=== PATIENT | female | born 1995 | race Caucasian/White ===

== ENCOUNTER → 2021-05-22 16:38 | Outpatient (CLI) | payer OTHER, MEDICAID, SELFPAY ==
[2021-05-22 20:57] LABS: Urine Chlamydia NOT DETECTED; Urine N gonorrhoeae NOT DETECTED
== END ==
PROVIDERS: Family Provider Specialist; Referring Provider Specialist; Visit Provider Specialist
DX: Z34.81 Encounter for supervision of other normal pregnancy, first trimester (principal); Z3A.12 12 weeks gestation of pregnancy
CPT/HCPCS: 87491; 87591

== ENCOUNTER → 2021-05-22 16:42 | Outpatient (CLI) | payer OTHER, SELFPAY ==
[2021-05-22 17:16] LABS: Add Manual Diff / Slide Review NO; Basophils Absolute Auto 0 /uL (0-100); Basophils Percent Auto 0.1 % (0-2); Eosinophils Absolute Auto 100 /uL (0-450); Eosinophils Percent Auto 1.8 % (2-4); Hematocrit 35.3 % (36-46); Lymphocytes Absolute Auto 1800 /uL (1100-4500); Lymphocytes Percent Auto 22.7 % (25-40); Mean Corpuscular HGB Conc 33.9 % (30-36); Mean Corpuscular Hemoglobin 33.2 PG (26-34); Mean Corpuscular Volume 97.9 fL (80-100); Monocytes Absolute Auto 500 /uL (0-900); Monocytes Percent Auto 5.7 % (3-14); Neutrophils Absolute Auto 5600 /uL (1500-7000); Neutrophils Percent Auto 69.7 % (50-75); Platelet Count 226 X10^3/uL (150-400); Red Cell Distribution Width 13.1 % (11.6-14.8)
[2021-05-22 18:53] LABS: Hepatitis B Surface Antigen NEGATIVE s/c (NEGATIVE); Rubella Antibody IgG 74.9 IU/mL (>15)
[2021-05-22 19:09] LABS: HIV 1 & 2 Ab/Ag 4th Gen Combo NEGATIVE (NEGATIVE); Hep C Virus Ab w/Reflex Quant NEGATIVE s/c (NEGATIVE)
[2021-05-23 08:42] LABS: RPR Screen Non Reactive (Non Reactive); Varicella IgG Antibody 737 index (Immune >165)
== END ==
PROVIDERS: Family Provider Specialist; Referring Provider Specialist; Visit Provider Specialist
DX: Z34.81 Encounter for supervision of other normal pregnancy, first trimester (principal); Z3A.12 12 weeks gestation of pregnancy
CPT/HCPCS: 36415; 80055; 86787; 86803; 86850; 86900; 86901; 87389; 87491; 87591

== ENCOUNTER → 2021-07-16 15:38 | Outpatient (CLI) | payer OTHER, MEDICAID, SELFPAY ==
--- NOTE | 2021-07-16 15:41 | DI.US.S_ITS ---
PROCEDURE: US OB >= 14 WEEKS FETUS INDICATIONS: 20 WEEK ANATOMY OUTSIDE/PRIOR DATING DATA: Last menstrual period (LMP): Un known LMP-based estimated date of delivery (FERN): Unknown First dating scan (date and location): 05/22/2021 Estimated date of delivery (FERN) from first dating scan: 11/26/2021 The calculations are made using the study generated FERN of 11/26/2021. TECHNIQUE: Real-time scanning was performed of the fetus, with image documentation and biometric measurements. Endovaginal scanning: Not indicated COMPARISON: [facility], , OB >= 14 WEEKS FETUS, 06/27/2021, 17:07. FINDINGS: General: A single living intrauterine gestation is present. Presentation: Vertex. Placenta: Placental position is posterior, without previa. Amniotic fluid index: 14.2 cm, normal range is 5-24 cm. Single deepest vertical pocket is 4.95 cm. heart rate: 158 beats per minute. Maternal cervical canal: 3.9 cm long. Normal lower limit is 2.5 cm. biometrics: Biparietal diameter: 5 cm, 21 weeks, 1 day Head circumference: 18.5 cm, 20 weeks, 6 days Abdominal circumference: 16.0 cm, 21 weeks, 1 day Femur length: 3.3 cm, 20 weeks, 2 days Clinically estimated gestational age: 21 weeks, 0 day Composite gestational age from present scan: 20 weeks, 6 days Estimated weight and percentile: 376 g, 33%. Anatomic survey: Neuro: Ventricles are non-dilated at less than 10 mm. Cisterna magna is normal at 3-11 mm. Cerebellum is normal in size and morphology. Nuchal skin fold: Normal at less than 6 mm between 14-21 weeks gestational age. Face: Nose and lips, facial profile are normal. Spine: No evidence for spina bifida. Heart: 4-chambered heart is present, with normal ventricular outflow tracts. Diaphragm: Diaphragm is intact. Stomach: Left-sided stomach is present. Kidneys: No hydronephrosis. Normal is less than 5 mm in 2nd trimester, less than 7 mm in 3rd trimester. Cord: 3-vessel cord has orthotopic insertion. Bladder: Normal in size. Extremities: All 4 extremities identified. IMPRESSION: 1. Single live intrauterine with fetus in vertex presentation. heart rate is 158 beats per minute. Normal amount of amniotic fluid. Normal growth. Estimated weight is at 33%. 2. Slightly limited evaluation of four-chamber heart. Otherwise normal anatomic survey. We strive to produce accurate, complete, and clear reports of imaging services. To assist us in improving patient care, this report was composed using standard report templates and voice recognition software. Therefore, it may contain abnormal punctuation, insertions and/or omissions. Occasional wrong-word or sound-alike substitutions may occur. Though we review the report and make efforts to correct it, we do recommend that the report be read carefully in proper context to recognize any text inaccuracies. Dictated by: Tommy Tee M.D. on 07/16/2021 at 17:23 Approved by: Tommy Tee M.D. on 07/16/2021 at 17:25
== END ==
PROVIDERS: Family Provider Specialist; Referring Provider Specialist; Visit Provider Specialist
DX: Z34.82 Encounter for supervision of other normal pregnancy, second trimester (principal); Z3A.20 20 weeks gestation of pregnancy
CPT/HCPCS: 76811

== ENCOUNTER → 2021-07-23 19:27 | Outpatient (ROUT) | payer OTHER, MEDICAID, SELFPAY ==
[2021-07-23 19:31] LABS: Appearance Urine UA CLEAR; Bilirubin Urine UA NEGATIVE (NEGATIVE); Color Urine UA YELLOW; Glucose Urine UA NEGATIVE (Negative); Ketones Urine UA NEGATIVE (NEGATIVE); Leukocyte Esterase Urine UA NEGATIVE (NEGATIVE); Nitrite Urine UA NEGATIVE (Negative); Occult Blood Urine UA NEGATIVE (Negative); Protein Urine UA TRACE (Negative); Urobilinogen Urine UA 0.2 E.U./dL (0.2); pH Urine UA 6.5 (4.5-8.0)
== END ==
PROVIDERS: Family Provider Specialist; Visit Provider Specialist
DX: Z34.81 Encounter for supervision of other normal pregnancy, first trimester (principal)
CPT/HCPCS: 81003; 87086

== ENCOUNTER → 2021-08-13 13:26 | Outpatient (CLI) | payer OTHER, MEDICAID, SELFPAY ==
[2021-08-13 15:05] LABS: Hematocrit 32.4 % (36-46); Hemoglobin 11.1 g/dL (12.0-16.0)
[2021-08-13 15:19] LABS: GTT (PREG) 1 Hour PP 50gm Dose 112 mg/dL (76-139)
== END ==
PROVIDERS: Family Provider Specialist; Referring Provider Specialist; Visit Provider Specialist
DX: Z34.82 Encounter for supervision of other normal pregnancy, second trimester (principal)
CPT/HCPCS: 36415; 82950; 85014; 85018

== ENCOUNTER → 2021-09-04 16:25 | Outpatient (CLI) | payer OTHER, MEDICAID, SELFPAY ==
[2021-09-04 16:46] LABS: Appearance Urine UA CLEAR; Bilirubin Urine UA NEGATIVE (NEGATIVE); Color Urine UA YELLOW; Glucose Urine UA NEGATIVE (Negative); Ketones Urine UA NEGATIVE (NEGATIVE); Leukocyte Esterase Urine UA NEGATIVE (NEGATIVE); Nitrite Urine UA NEGATIVE (Negative); Occult Blood Urine UA NEGATIVE (Negative); Protein Urine UA NEGATIVE (Negative); Specific Gravity Urine UA 1.015 (1.000-1.035); Urobilinogen Urine UA 0.2 E.U./dL (0.2)
== END ==
PROVIDERS: Family Provider Specialist; Referring Provider Specialist; Visit Provider Specialist
DX: N39.0 Urinary tract infection, site not specified (principal)
CPT/HCPCS: 81003

== ENCOUNTER → 2021-10-27 09:31 | Outpatient (CLI) | payer OTHER, MEDICAID, SELFPAY ==
[2021-10-28 16:37] LABS: Strep Grp B PCR NEG for Grp B Strep
== END ==
PROVIDERS: Family Provider Specialist; PCP Specialist; Visit Provider Specialist
DX: Z34.83 Encounter for supervision of other normal pregnancy, third trimester (principal); Z3A.35 35 weeks gestation of pregnancy
CPT/HCPCS: 87653

== ENCOUNTER 2021-12-01 21:38 | Inpatient (IN) | payer OTHER, MEDICAID, SELFPAY ==
[2021-12-01] MEDS: LACTATED RINGERS 1,000 ML 100 ML IV (22:45)
[2021-12-01 23:08] LABS: COVID19 -Nasal RAPID Negative (Negative)
--- NOTE | 2021-12-01 23:11 | PM.OBHP.IH.1 ---
OB HPI Date/Time Date of admission: 12/01/21 Date Patient Seen: 12/01/21 Time Patient Seen: 22:15 History of Present Condition Chief complaint: FERN Calculator Estimated Delivery Date Method Current WG Current Estimate 11/29/21 Ultrasound #1 40w 2d Other Estimates 12/07/21 LMP (Certain) 39w 1d Estimated Gestational Age (weeks): 40.2 : 2 Para: 1 Narrative: 26YO @ 4owks2 days by 8 wk US presents for labor evaluation. Contractions started 2 hours ago, immediately strong and 2 minutes apart. No VB or LOF. Uncomplicated PN care w/ . Desires epidural. Partner is present and supportive. care: good care, initiated at week # (8), number of visits (13) and pounds weight gain (23) Dating criteria OB: based on 1st trimester US only Ultrasounds: normal mid trimester US Obstetrical complications: none Medical complications OB: none Preadmission Labs Last OB Lab Results: Blood Type O Positive 05/22/21 16:47 Antibody Screen Negative 05/22/21 16:47 Hematocrit 36.7 % (36-46) 12/01/21 22:39 Hemoglobin 12.4 g/dL (12.0-16.0) 12/01/21 22:39 Hepatitis B Surface Antigen Negative s/c (NEGATIVE) 05/22/21 16:47 Hepatitis C Antibody Negative s/c (NEGATIVE) 05/22/21 16:47 Rubella Antibody 74.9 IU/mL (>15) 05/22/21 16:47 Varicella-Zoster IgG Antibody 737 index (Immune >165) 05/22/21 16:47 Glucose 1 Hour 112 mg/dL (76-139) 08/13/21 14:40 Group B Streptococcus (PCR) Neg for grp b strep 10/27/21 09:31 Prior (ies) Past Pregnancies Del. Date GA/Weeks Labor Lgth Wt Sex Route Outcome Anesthesia Place Delv Breastfeed Preg Comp Name 09/10/16 38 4 3.487 kg Female vaginal live - full term epidural [facility] Dr. Birtt 1 month other [place] Delivery Date: 09/10/16 Last Updated by: Michelle Galan R.N. SROM without labor, pit augmentation. 3 hr 2nd stage. Failed vacuum assist, Forceps, 2nd degree lac with repair. Still has some discomfort with sex at times. PP Anxiety. Evaluation Evaluation Baseline heart rate: 150 Variability: Moderate (11-25) monitor accelerations: Present Monitor Decelerations: Variable Contraction Frequency (minutes): 3 Uterine Contraction Intensity: Moderate Status: Category ll Dilation (cm): 4.5 Effacement (%): 80 Position of cervix: posterior Consistency: soft PFSH Medical History Anxiety (~2017) Vaginal delivery Surgical History History of oral surgery Status post myringotomy with insertion of tube [place] teeth extracted Family History Mother Skin cancer Father No problems noted. 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 ) during the past year weight has: remained stable well-balanced diet: daily or most days daily servings fruits/ve-4 caffeine: No (Quit caffeine; some soda. ) Type(s) of exercise: walking and normal ROM and activity (On her feet, active in workplace most days.) frequency: 3-4 times per week duration: 30-45 minutes/day Meds Home Medications and Allergies Home Medications Medication Instructions Recorded Confirmed Type sumatriptan succinate 50 mg tablet 50 mg PO ONCE Migraine #9 tabs 11/01/20 10/27/21 Rx prenat.vits,christoph,ttt-fpna-tiztb 1 tab PO DAILY 05/16/21 10/27/21 History fluconazole 150 mg tablet 150 mg PO DAILY #2 tabs 09/05/21 10/27/21 Rx (Diflucan) Double electric breast pump #1 ea 09/22/21 10/27/21 Rx ferrous sulfate 143 mg PO DAILY 10/01/21 10/27/21 History Allergies Allergy/AdvReac Type Severity Reaction Status Date / Time amoxicillin Allergy Mild Rash Verified 10/27/21 09:22 Review of Systems Review of Systems ROS: Yes All systems reviewed with the patient and are negative except as otherwise documented OB Exam Resp Effort & Inspection: normal respiratory effort Auscultation: clear to auscultation bilaterally Cardio Rate: regular rate Rhythm: regular rhythm Heart Sounds: S1 normal and S2 normal Presentation: vertex Objective Labs Result Diagrams: 12/01/21 22:39 Labs: Laboratory Results - last 24 hr 12/01/21 22:39 SARS-CoV-2 (PCR) Negative Assessment and Plan Assessment and Plan Assessment and Plan narrative: Term primipara Active labor No indication for GBS prophyalxis Cat II FHR, overall reassuring P: Admit, routine orders. Epidural when requested. Discussed labor admit w/ who requested CNM manage this . Reassess in 4 hours or sooner.
[2021-12-01 23:14] LABS: Hematocrit 36.7 % (36-46); Hemoglobin 12.4 g/dL (12.0-16.0); Mean Corpuscular HGB Conc 33.7 % (30-36); Mean Corpuscular Hemoglobin 33.3 PG (26-34); Mean Corpuscular Volume 98.9 fL (80-100); Platelet Count 195 X10^3/uL (150-400); Red Blood Cell Count 3.71 X10^6/uL (4.0-5.2); Red Cell Distribution Width 14.7 % (11.6-14.8); White Blood Cell Count 11.6 X10^3/uL (4.5-11.0)
[2021-12-01 23:15] LABS: Add Manual Diff / Slide Review YES
[2021-12-01] MEDS: FENT 2MCG/ML BUPIV 0.125% EPI 200 MCG/100 ML PLAST..BAG 8 MCG EPIDURAL (23:15)
[2021-12-01 23:31] VITALS: BP 117/76
[2021-12-02 00:04] LABS: Anisocytosis 1+; Neutrophils Absolute Manual 8932 /uL (3000-5900); Total Cells Counted 100
[2021-12-02] MEDS: ACETAMINOPHEN 325 MG TABLET 650 MG PO ×3 (00:19→21:21)
[2021-12-02] MEDS: LACTATED RINGERS 1,000 ML 100 ML IV (01:41)
[2021-12-02] MEDS: CALCIUM CARBONATE 500 MG TAB 1000 MG PO (01:44)
[2021-12-02] MEDS: OXYTOCIN PREMIX 30 UNIT/500 ML PLAST..BAG 200 UNIT IV (02:45)
--- NOTE | 2021-12-02 04:43 | P.PCNOB_ITS ---
Events: Meconium Stained Fluid Labor & Delivery Delivery date: 12/02/21 Intrapartal Events: None Cervical ripening method: none Induction method: none Delivery monitor: external FHT and external uterine Route of delivery: Episiotomy description: None L&D Laceration Description: Perineal - 2nd Degree Delivery repair: chromic (3.0) Estimated blood loss (mL): 25 Anesthesia Type: Epidural Narrative: Patient labored well with an epidural. SROM for thick meconium stained fluid at 0054. Upon routine exam was found to be C/C/+2. Patient pushed well with coaching and encouragement. RT was called to standby for the . NSVB of a vigorous baby girl in GUERDA position. Sommersaulted through a single loose nuchal cord. The shoulders delivered easily without additional maneuvers. [place] was placed on maternal abdomen for drying and skin to skin. Apgars 9/9. 30units of pitocin in 500mL LR was started at 250mL/hr for AMTSL. After cessation of pulsation, the cord was double clamped by CNM and cut by FOB. Cord blood sample was collected. Gentle cord traction and single maternal push led to spontaneous, [place] delivery of an apparently intact placenta, membranes and 3VC. Fundus immediately firm and bleeding minimal. Inspection revealed a 2nd degree perineal laceration, repaired with 3.0 chromic in the usual fashion under adequate epidural anesthesia. QBL 25mL. Both mother and baby stable and skin to skin as I left the room. Baby 1: gender: Female Presentation: vertex Position: Right Occiput Anterior Placenta delivery description: Spontaneous Cord Vessel Description: 3 Vessels, Nuchal Cord and Loose score (1 min): 9 score (5 min): 9 weight: 3.928 kg Plan for aftercare: Routine care
[2021-12-02] MEDS: KETOROLAC 30 MG/ML VIAL IV (05:24)
[2021-12-02] MEDS: IBUPROFEN 600 MG TABLET PO ×2 (12:07→18:02)
[2021-12-02] MEDS: OXYCODONE IR 5 MG TABLET PO (16:58)
[2021-12-02] MEDS: DERMOPLAST SPRAY 20% 60 ML 1 SPRAY TOP (20:22)
[2021-12-03] MEDS: IBUPROFEN 600 MG TABLET PO ×2 (00:38→09:57)
[2021-12-03] MEDS: ACETAMINOPHEN 325 MG TABLET 650 MG PO (05:16)
[2021-12-03] MEDS: OXYCODONE IR 5 MG TABLET PO (05:17)
--- NOTE | 2021-12-03 08:37 | PM.OBDS.1 ---
Discharge Providers Provider Date of admission: 12/01/21 21:38 Discharge Date: 12/03/21 Consults: 12/01/21 22:24 Consult to Anesthesiology Urgent Comment: Consulting Provider: Anesthesiologist Reason for consultation: Epidural Has provider been notified: No 12/03/21 03:00 Consult to Manufacturing Process Engineer Routine Comment: Discharge provider: Yasmine Britt MD Summary Hospital Course Date Patient Seen: 12/03/21 Time Patient Seen: 09:35 Diagnoses: Vaginal delivery Hospital Course: Patient arrived on Labor and delivery in active labor. She received an epidural catheter for pain control. She had a spontaneous vaginal delivery of a viable female infant. She had repair of a second-degree tear. She is urinating and ambulating well. Minimal pain. She is breast-feeding without difficulty. Peripartum Data Delivery Method: Natural Vaginal Laceration Description: Perineal - 2nd Degree Procedures: Epidural catheter, spontaneous vaginal delivery, repair of second-degree tear complications: none 1: Gender: Female Disposition of : home Discharge Diagnosis (1) Spontaneous vaginal delivery: Status: Acute Status at Discharge Cognitive/behavioral status at discharge: oriented Functional status at discharge: independent ambulation Overall status at discharge: patient is progressing back to baseline Time Spent with Patient Time attestation: Total time spent providing and/or coordinating discharge services: Time spent: Less than 30 minutes Objective Labs Result Diagrams: 12/01/21 22:39 Exam Vital Signs (past 8 hours): Blood pressure 94/55, pulse 64, temperature 97.4? Narrative Exam Narrative: Abdomen is soft, nontender. Uterus is firm, U-1, nontender. Mild lochia. Extremities without edema and nontender. Patient's blood type is O positive, she is rubella immune, she received Tdap in the 3rd trimester. Discharge Plan Discharge Plan Patient Disposition: Home Discharge orders & Medications Prescriptions: Continued sumatriptan succinate 50 mg tablet 50 mg PO ONCE Qty: 9 2RF Rx Instructions: may repeat once after at least 2 hours prenat.vits,christoph,rac-lxnm-ulrbh Tablet 1 tab PO DAILY Discontinued fluconazole [Diflucan] 150 mg tablet 150 mg PO DAILY Qty: 2 0RF Rx Instructions: Take once and then repeat in 3 days ferrous sulfate 47.5 mg iron tablet extended release 143 mg PO DAILY No Action (DME) Double electric breast pump See Rx Instructions .Route .MEDSUPPLY Qty: 1 0RF Rx Instructions: Use electric breast pump and supplies as directed for 99 months. FERN 11/29/21. Pt # [id number] Follow up/Referrals: Gabriela Adams MD [Physician] - 6 Weeks Diet/Activity/Treatments Diet: Regular Activity: Nothing in vagina for 6 weeks Skin/Wound/Dressing Care Report to your healthcare provider any signs of infection, such as:: chills, fever and increased pain
[2021-12-03 12:27] VITALS: BP 104/70; PULSE 82; RESP 16; TEMP 36.4
== END 2021-12-03 13:05 | disposition home or self-care (01) | DRG 807 ==
PROVIDERS: Admitting Provider Nurse Practitioner Obstetrics & Gynecology; Family Provider Specialist; Referring Provider Nurse Practitioner Obstetrics & Gynecology; Visit Provider Nurse Practitioner Obstetrics & Gynecology
DX: O69.81X0 Labor and delivery complicated by cord around neck, without compression, not applicable or unspecified (principal); O70.1 Second degree perineal laceration during delivery; O77.0 Labor and delivery complicated by meconium in amniotic fluid; Z3A.40 40 weeks gestation of pregnancy; Z37.0 Single live birth
CPT/HCPCS: 01967; 36415; 59050; 85007; 85025; 86850; 86900; 86901; 87635; C9803; G0379; J1885; J2590

== ENCOUNTER → 2025-05-11 08:33 | Outpatient (CLI) | payer OTHER, SELFPAY ==
--- NOTE | 2025-05-11 08:35 | DI.US.S_ITS ---
PROCEDURE: US OB <= 14 WEEKS FETUS INDICATIONS: DATING OUTSIDE/PRIOR DATING DATA: Last menstrual period (LMP): 03/01/25. LMP-based estimated date of delivery (FERN): 12/06/25. First dating scan (date and location): This study. Estimated date of delivery (FERN) from first dating scan: 12/06/25. The calculations are made using the most accurate FERN of 12/06/25. TECHNIQUE: Real-time scanning was performed of the fetus and maternal pelvic organs, with image documentation. Endovaginal scanning was also performed to better visualize the fetus and maternal ovaries. COMPARISON: None. FINDINGS: Embryo: [place]-rump length 3.3 cm correlates with a gestational age of 10 weeks 1 day. Note is made of what appears to be a perigestational subchorionic hemorrhage measuring 3.5 x 4.9 x 2.9 cm. Heart rate: 163 beats per minute. Maternal organs: Ovaries normal considering gestational status. IMPRESSION: Single living intrauterine gestation with delivery date projected to be centered on 12/06/25 +/-5 days. Moderate sized subchorionic hemorrhage as noted. We strive to produce accurate, complete, and clear reports of imaging services. To assist us in improving patient care, this report was composed using standard report templates and voice recognition software. Therefore, it may contain abnormal punctuation, insertions and/or omissions. Occasional wrong-word or sound-alike substitutions may occur. Though we review the report and make efforts to correct it, we do recommend that the report be read carefully in proper context to recognize any text inaccuracies. Dictated by: Luis Laura M.D. on 05/11/2025 at 9:34 Approved by: Luis Laura M.D. on 05/11/2025 at 9:38
== END ==
LOC: US 08:34
PROVIDERS: PCP Student in an Organized Health Care Education/Training Program; Referring Provider Family Medicine; Visit Provider Family Medicine
DX: O46.8X1 Other antepartum hemorrhage, first trimester (principal); Z3A.10 10 weeks gestation of pregnancy
CPT/HCPCS: 76801

== ENCOUNTER → 2025-05-28 12:52 | Outpatient (CLI) | payer OTHER, SELFPAY ==
[2025-05-28 13:29] LABS: Appearance Urine UA CLEAR; Bilirubin Urine UA NEGATIVE (NEGATIVE); Color Urine UA YELLOW; Glucose Urine UA NEGATIVE (Negative); Ketones Urine UA NEGATIVE (NEGATIVE); Leukocyte Esterase Urine UA TRACE (NEGATIVE); Nitrite Urine UA NEGATIVE (Negative); Occult Blood Urine UA NEGATIVE (Negative); Protein Urine UA NEGATIVE (Negative); Specific Gravity Urine UA 1.015 (1.000-1.035); Urobilinogen Urine UA 0.2 E.U./dL (0.2)
[2025-05-28 13:33] LABS: pH Urine UA 6.5 (4.5-8.0)
[2025-05-28 13:51] LABS: Add Manual Diff / Slide Review NO; Hematocrit 36.9 % (36-46); Hemoglobin 12.6 g/dL (12.0-16.0); Lymphocytes Absolute Auto 1400 /uL (1100-4500); Mean Corpuscular HGB Conc 34.0 % (30-36); Mean Corpuscular Hemoglobin 33.0 PG (26-34); Mean Corpuscular Volume 97.0 fL (80-100); Platelet Count 226 X10^3/uL (150-400)
[2025-05-28 14:15] LABS: Natera Collection Specimen Collected
[2025-05-28 14:21] LABS: HEMOLYSIS < 15 (0-50); Iron 149 ug/dL (37-170)
[2025-05-28 14:22] LABS: Alanine Aminotransferase 9 IU/L (<35); Albumin 4.2 g/dL (3.5-5.0); Albumin Globulin Ratio 1.3 (1.0-2.8); Alkaline Phosphatase 43 U/L (38-126); Blood Urea Nitrogen 11 mg/dL (7-17); Calcium 9.7 mg/dL (8.4-10.2); Carbon Dioxide 22 mmol/L (22-32); Chloride 104 mmol/L (98-107); Estimated Glomerular Filt Rate > 60 mL/min (>60); Globulin 3.2 g/dL (1.7-4.1); Glucose 93 mg/dL (70-99); HEMOLYSIS < 15 (0-50); Potassium 4.1 mmol/L (3.4-5.1); Sodium 136 mmol/L (137-145); Total Protein 7.4 g/dL (6.3-8.2)
[2025-05-28 14:32] LABS: Percent Iron Saturation 32 % (15-50); Total Iron Binding Capacity 459 ug/dL (265-497); Transferrin 389 mg/dL (206-381)
[2025-05-28 14:47] LABS: Protein (Total) Urine Random 12 mg/dL (0-12); Protein Creatinine Ratio Urine 0.17 GRAM/24H
[2025-05-28 14:57] LABS: Ferritin 8 ng/mL (6-137)
[2025-05-28 15:24] LABS: Urine N gonorrhoeae NOT DETECTED
[2025-05-28 15:25] LABS: Urine Chlamydia NOT DETECTED
[2025-05-29 17:04] LABS: Hepatitis B Surface Antigen NEGATIVE s/c (NEGATIVE)
[2025-05-29 17:19] LABS: HIV 1 & 2 Ab/Ag 4th Gen Combo NEGATIVE (NEGATIVE); Hep C Virus Ab w/Reflex Quant NEGATIVE s/c (NEGATIVE)
== END ==
PROVIDERS: PCP Student in an Organized Health Care Education/Training Program; Referring Provider Family Medicine; Visit Provider Family Medicine
DX: Z34.02 Encounter for supervision of normal first pregnancy, second trimester (principal)
CPT/HCPCS: 36415; 80053; 80055; 81003; 81015; 82570; 82728; 83540; 83550; 84156; 86787; 86803; 86850; 86900; 86901; 87086; 87389; 87491; 87591